=== PATIENT | female | born 1970 | race Caucasian/White ===

== ENCOUNTER 2016-09-01 23:37 | Emergency (ER) | payer OTHER ==
[2016-09-01 23:44] VITALS: BMI 26.5
--- NOTE | 2016-09-02 00:19 | PDOC ---
History of Present Illness - General History Source: Patient Exam Limitations: No Limitations - History of Present Illness Initial Comments: 09/02/16 00:34 The patient is a 46 year old female with no significant past medical history who presents to the ED for 4 days of midsternal chest pain. Patient describes her pain as a stabbing sensation that radiated to the left-side of the chest today. States she received sublingual nitro with improvement. Patient also reports she endorses SOB upon deep inspiration. Denies lightheadedness, diaphoresis, palpitations, jaw pain, shoulder pain, arm pain, nausea, or vomiting. The patient denies fever, chills, cough, abdominal pain, and diarrhea. Allergies: acetaminophen, dextromethorphan HBr, doxylamine succinate, pseudoephedrine HCl Social History: Current smoker. No alcohol or drug use reported. Family History: Mom and grandmother had a DE Past Surgical History: robotic assisted laparoscopic hysterectomy (03/2015) PCP: Dr. Ehsan Kan <Flavia Chakraborty - Last Filed: 09/02/16 05:10> - General History Source: Patient <Srinath Cavazos - Last Filed: 09/02/16 05:44> - General Chief Complaint: Chest Pain Stated Complaint: CHEST PAINS Time Seen by Provider: 09/02/16 00:19 Past History <Flavia Chakraborty - Last Filed: 09/02/16 05:10> - Past Medical History Anemia: No Asthma: No Cancer: No Cardiac Disorders: No CVA: No COPD: No CHF: No Dementia: No Diabetes: No GI Disorders: No Disorders: No HTN: No Hypercholesterolemia: No Liver Disease: No Seizures: No Thyroid Disease: No - Surgical History Abdominal Surgery: Yes (LORENZA SCOTT) - Psycho/Social/Smoking Cessation Hx Anxiety: No Suicidal Ideation: No Smoking History: Never smoked Have you smoked in the past 12 months: No Number of Cigarettes Smoked Daily: 8 Information on smoking cessation initiated: No 'Breaking Loose' booklet given: 08/29/15 Hx Alcohol Use: No Drug/Substance Use Hx: No Substance Use Type: None <Srinath Cavazos - Last Filed: 09/02/16 05:44> - Past Medical History Allergies/Adverse Reactions: Allergies Allergy/AdvReac Type Severity Reaction Status Date / Time acetaminophen [From NyQuil] Allergy Verified 09/02/16 00:12 dextromethorphan HBr Allergy Verified 09/02/16 00:12 [From NyQuil] doxylamine succinate Allergy Verified 09/02/16 00:12 [From NyQuil] pseudoephedrine HCl Allergy Verified 09/02/16 00:12 [From NyQuil] Home Medications: Ambulatory Orders Ondansetron [Zofran *Odt*] 4 mg SL TID #30 od.tablet 09/02/16 Review of Systems - Review of Systems Able to Perform ROS?: Yes Comments:: 09/02/16 00:34 CONSTITUTIONAL: Absent: fever, no chills, no fatigue EYES: Absent: visual changes ENT: Absent: ear pain, no sore throat CARDIOVASCULAR: +chest pain Absent: no palpitations RESPIRATORY: +endorses SOB upon deep inspiration Absent: cough GI: Absent: abdominal pain, no nausea, no vomiting, no constipation, no diarrhea GENITOURINARY: Absent: dysuria, no frequency, no hematuria MUSCULOSKELETAL: Absent: back pain, no arthralgia, no myalgia SKIN: Absent: rash NEURO: Absent: headache <Flavia Chakraborty - Last Filed: 09/02/16 05:10> *Physical Exam - Vital Signs Last Vital Signs Temp Pulse Resp BP Pulse Ox 98.5 F 98 H 14 122/84 98 09/01/16 23:42 09/01/16 23:44 09/01/16 23:42 09/01/16 23:42 09/01/16 23:44 - Physical Exam Comments: 09/02/16 00:34 GENERAL: Well-appearing, well-nourished. No apparent distress. HEENT: Normocephalic, atraumatic. PERRL, EOM intact. CARDIOVASCULAR: Regular rate and rhythm. No murmurs, rubs, or gallops. Distal pulses are 2+ and symmetric. PULMONARY: No evidence of respiratory distress. Right lower posterior lobe inspiratory wheezing. No rales or rhonchi. No conversational dyspnea. No retractions. ABDOMEN: Soft, non-distended, non-tender. EXTREMITIES: Normal ROM in all four extremities. No gross deformities. SKIN: Warm, dry. No rash NEUROLOGICAL: No focal neurological deficits. <Flavia Chakraborty - Last Filed: 09/02/16 05:10> - Vital Signs Last Vital Signs Temp Pulse Resp BP Pulse Ox 98.5 F 98 H 14 122/84 98 09/01/16 23:42 09/01/16 23:44 09/01/16 23:42 09/01/16 23:42 09/01/16 23:44 <Srinath Cavazos - Last Filed: 09/02/16 05:44> Heart Score/ECG Review - ECG Impressions Comment:: 09/02/16 00:34 NSR @82bpm Normal ECG 09/02/16 05:11 NSR @71bpm Normal ECG <Falvia Chakraborty - Last Filed: 09/02/16 05:10> ED Treatment Course - LABORATORY CBC & Chemistry Diagram: 09/02/16 00:30 09/02/16 00:30 - Medications Given in the ED: ED Medications Discontinued Medications Generic Name Dose Route Start Last Admin Trade Name Freq PRN Reason Stop Dose Admin Aspirin 324 mg 09/02/16 00:20 09/02/16 00:28 Asa - PO 09/02/16 00:21 324 mg ONCE ONE Administration <Flavia Chakraborty - Last Filed: 09/02/16 05:10> - LABORATORY CBC & Chemistry Diagram: 09/02/16 00:30 09/02/16 00:30 <Srinath Cavazos - Last Filed: 09/02/16 05:44> Medical Decision Making - Medical Decision Making 09/02/16 00:21 Dr. Cavazos: The scribe's documentation has been prepared under my direction and personally reviewed by me in its entirery. I confirm that the note above accurately reflects all work, treatment, procedures, and medical decision making performed by me. 09/02/16 05:34 Cardiac enzymes x 2 are negative. Pt is chest pain. Pt will be discharged. <Srinath Cavazos - Last Filed: 09/02/16 05:44> *DC/Admit/Observation/Transfer - Attestations Scribe Attestion: 09/02/16 00:34 Documentation prepared by Flavia Chakraborty, acting as medical record retrieval specialist for Srinath Cavazos MD/DO. <Flavia Chakraborty - Last Filed: 09/02/16 05:10> - Discharge Dispostion Admit: No <Srinath Cavazos - Last Filed: 09/02/16 05:44> Diagnosis at time of Disposition: Chest pain, Bronchitis - Discharge Dispostion Disposition: HOME Condition at time of disposition: Stable - Prescriptions Prescriptions: Ondansetron [Zofran *Odt*] 4 mg SL TID #30 od.tablet - Referrals Referrals: Alessio Collins MD [Staff Physician] - Donald Henning MD [Staff Physician] - - Patient Instructions Printed Discharge Instructions: DI for Chest Pain, DI for Acute Bronchitis - Post Discharge Activity Work/School Note: Back to Work
[2016-09-02] MEDS ORDERED: ALBUTEROL SO4 2.5/IPRATROPIUM 0.5 INH SOL 3 ML VIAL.NEB. NEB STA (00:20)
[2016-09-02] MEDS ORDERED: ASPIRIN 81 MG CHEWABLE TABLETS PO ONE (00:20)
[2016-09-02] MEDS ORDERED: ASPIRIN 325 MG TABLET ONE (00:30)
[2016-09-02] MEDS ORDERED: ALBUTEROL SO4 2.5/IPRATROPIUM 0.5 INH SOL 3 ML VIAL.NEB. NEB ONE (00:30)
[2016-09-02 00:38] LABS: BASOPHIL 0.8 % (0-2.0); EOSINOPHIL 2.2 % (0-4.5); MCH 27.8 pg (25.7-33.7); MCHC 33.1 g/dl (32.0-36.0); MEAN CELL VOLUME 83.9 fl (80-96); MEAN PLT VOLUME 8.6 fl (7.5-11.1); NEUTROPHILS 52.4 % (42.8-82.8); PLATELET COUNT 231 K/MM3 (134-434); RDW 12.9 % (11.6-15.6); WHITE BLOOD COUNT 9.5 K/mm3 (4.0-10.0)
[2016-09-02 00:54] LABS: INR 1.01 (0.82-1.09); PROTHROMBIN TIME (PATIENT) 11.1 SEC (9.98-11.88)
[2016-09-02 01:04] LABS: ALBUMIN 3.8 g/dl (3.4-5.0); ANION GAP 8 (8-16); BILIRUBIN,TOTAL 0.3 mg/dL (0.2-1.0); CALCIUM 8.6 mg/dL (8.5-10.1); CO2 28 mmol/L (21-32); CREATININE 0.6 mg/dL (0.55-1.02); GLUCOSE,RANDOM 114 mg/dL (74-106); SGOT/AST 25 U/L (15-37); SGPT/ALT 37 U/L (12-78); TOT PROT 7.3 g/dl (6.4-8.2)
[2016-09-02 01:07] LABS: ALK PHOS 92 U/L (45-117); TROPONIN I < 0.02 ng/ml (0.00-0.05)
[2016-09-02] MEDS ORDERED: NITROGLYCERIN 2% OINTMENT - 1GM PACKET TD ONE ×2 (01:19→01:23)
[2016-09-02 05:28] LABS: TROPONIN I < 0.02 ng/ml (0.00-0.05)
[2016-09-02] MEDS ORDERED: AZITHROMYCIN 250 MG TABLET (FP) PO STA (05:39)
[2016-09-02 05:46] VITALS: BP 120/80; PULSE 78; TEMP 98.2
[2016-09-02] MEDS ORDERED: AZITHROMYCIN 250 MG TABLET (FP) ONE (05:47)
--- NOTE | 2016-09-02 11:48 | EKG ---
Test Reason : Blood Pressure : / mmHG Vent. Rate : 082 BPM Atrial Rate : 082 BPM P-R Int : 178 ms QRS Dur : 082 ms QT Int : 368 ms P-R-T Axes : 062 038 037 degrees QTc Int : 429 ms NORMAL SINUS RHYTHM NORMAL ECG WHEN COMPARED WITH ECG OF 25-MAR-2015 16:09, QT HAS LENGTHENED Confirmed by CESAR PATINO MD ([id number]) on 09/02/2016 11:47:35 AM Referred By: Confirmed By:CESAR PATINO MD
--- NOTE | 2016-09-03 13:13 | EKG ---
Test Reason : Blood Pressure : / mmHG Vent. Rate : 071 BPM Atrial Rate : 071 BPM P-R Int : 200 ms QRS Dur : 082 ms QT Int : 398 ms P-R-T Axes : 054 031 037 degrees QTc Int : 432 ms NORMAL SINUS RHYTHM NORMAL ECG WHEN COMPARED WITH ECG OF 01-SEP-2016 23:48, NO SIGNIFICANT CHANGE WAS FOUND Confirmed by COURTNEY DAVID MD ([id number]) on 09/03/2016 1:12:44 PM Referred By: MAK Confirmed By:COURTNEY DAVID MD
== END 2016-09-02 05:47 | disposition home or self-care (01) ==
LOC: JER 23:37
PROC: 3E0F7GC Introduction of Other Therapeutic Substance into Respiratory Tract, Via Natural or Artificial Opening (ICD-10-PCS; principal; 2016-09-01)
DX: J40 Bronchitis, not specified as acute or chronic (principal)
CPT/HCPCS: 36415; 71020-TC; 80053; 82550; 84484; 84703; 85025; 85610; 93005; 93010; 99284-25

== ENCOUNTER 2017-07-12 15:00 | Emergency (ER) | payer OTHER ==
[2017-07-12 16:03] VITALS: BP 125/81; PULSE 72; TEMP 99.1; BMI 25.7
[2017-07-12] MEDS ORDERED: METOCLOPRAMIDE HCL INJECTION 10 MG/2 ML VIAL IVPUSH ONE (16:37)
[2017-07-12] MEDS ORDERED: SODIUM CHLORIDE 1,000 ML IV ONE (16:37)
--- NOTE | 2017-07-12 16:51 | PDOC ---
History of Present Illness - General History Source: Patient Exam Limitations: No Limitations - History of Present Illness Initial Comments: 07/12/17 18:55 The patient is a 47 year old female with past medical history of hysterectomy who presents to the ED with complaints of headache for 1 week. The patient states that last Wednesday she was having intercourse with her significant other and when she orgasmed, she developed a headache which has been constant since. She reports an 8/10 squeezing/burning pain in her left temporal and occipital head. She reports that on Wednesday and the pain became better but did not disappear completely. Wednesday the pain got worse again and today the pain was at its worst when she went for a jog. It has been unrelieved by Tylenol or Advil. Last doses were at 8 am and 12 in the afternoon today, two pills of each. She states the pain is worsened by yelling, but is not affected by light. She denies any associated visual changes, flashes of light, numbness/tingling, or any focal neurological deficits but reports associated lightheadedness. She denies any frequent headaches and denies any trauma. Denies any neck or back pain, chest pain, or SOB. She denies any recent fevers or chills. Denies any nausea, vomiting, diarrhea. <Elena Martinez - Last Filed: 07/12/17 18:55> - General History Source: Patient Exam Limitations: No Limitations <Luis Zavala - Last Filed: 07/12/17 19:16> - General Chief Complaint: Headache Stated Complaint: HEADACHE Time Seen by Provider: 07/12/17 15:49 Past History <Elena Martinez - Last Filed: 07/12/17 18:55> - Past Medical History Anemia: No Asthma: No Cancer: No Cardiac Disorders: No CVA: No COPD: No CHF: No Dementia: No Diabetes: No GI Disorders: No Disorders: No HTN: No Hypercholesterolemia: No Liver Disease: No Seizures: No Thyroid Disease: No - Surgical History Abdominal Surgery: Yes (TUMMY TUCK) - Suicide/Smoking/Psychosocial Hx Smoking History: Never smoked Have you smoked in the past 12 months: No Number of Cigarettes Smoked Daily: 8 Information on smoking cessation initiated: Yes 'Breaking Loose' booklet given: 08/29/15 Hx Alcohol Use: Yes (OCCASIONAL) Drug/Substance Use Hx: No Substance Use Type: None <Luis Zavala - Last Filed: 07/12/17 19:16> - Past Medical History Allergies/Adverse Reactions: Allergies Allergy/AdvReac Type Severity Reaction Status Date / Time acetaminophen [From NyQuil] Allergy Verified 07/12/17 15:47 dextromethorphan Hbr Allergy Verified 07/12/17 15:47 [From NyQuil] doxylamine succinate Allergy Verified 07/12/17 15:47 [From NyQuil] pseudoephedrine HCl Allergy Verified 07/12/17 15:47 [From NyQuil] Home Medications: Ambulatory Orders Acetaminophen 1,000 mg PO ONCE 07/12/17 Ibuprofen [Motrin Ib] 400 mg PO ONCE 07/12/17 Review of Systems - Review of Systems Able to Perform ROS?: Yes Comments:: 07/12/17 18:56 CONSTITUTIONAL: No reported: Fever, Chills, Diaphoresis, Generalized Weakness, Malaise, Loss of Appetite HEENT: No reported: Rhinorrhea, Nasal Congestion, Throat Pain, Throat Swelling, Difficulty Swallowing, Mouth Swelling, Ear Pain, Eye Pain, Visual Changes CARDIOVASCULAR: No reported: Chest Pain, Syncope, Palpitations, Irregular Heart Rate, Lightheadedness, Peripheral Edema RESPIRATORY: No reported: Cough, Shortness of Breath, SOB with Exertion, Orthopnea, Wheezing , Stridor, Hemoptysis GASTROINTESTINAL: No reported: Abdominal pain, Abdominal Distension, Nausea, Vomiting, Diarrhea, Constipation, Melena, Hematochezia GENITOURINARY: No reported: Dysuria, Frequency, Urgency, Hesitancy, Flank Pain, Genital Pain MUSCULOSKELETAL: No reported: Myalgia, Arthralgia, Joint Swelling, Back pain, Neck Pain SKIN: No reported: Rash, Itching, Pallor HEMEATOLOGIC/IMMUNOLOGIC: No reported: Easy Bleeding, Easy Bruising, Lymphadenopathy, Frequent infections ENDOCRINE: No reported: Unexplained Weight Gain, Unexplained Weight Loss, Heat Intolerance , Cold Intolerance NEUROLOGIC: (+) Headache, dizziness No reported: Focal Weakness, Paresthesias, Vertigo, Unsteady Gait, Seizure, Mental Status Changes, Incontinence PSYCHIATRIC: No reported: Anxiety, Depression All Other Systems: Reviewed and Negative <Elena Martinez - Last Filed: 07/12/17 18:55> *Physical Exam - Vital Signs Last Vital Signs Temp Pulse Resp BP Pulse Ox 99.1 F 72 16 125/81 100 07/12/17 15:33 07/12/17 15:33 07/12/17 15:33 07/12/17 15:33 07/12/17 15:33 - Physical Exam Comments: 07/12/17 18:56 GENERAL: The patient is awake, alert, and fully oriented, Nontoxic - in no acute distress. HEAD: Normocephalic, atraumatic, mild tenderness on palpation of L evangelical EYES: extraocular movements intact, PERRL, sclera anicteric, conjunctiva clear. ENT: Normal voice, Moist mucous membranes. NECK: Normal range of motion, supple LUNGS: Breath sounds equal, clear to auscultation bilaterally. No wheezes, no rhonchi, no rales. HEART: Regular rate and rhythm, without murmur, rub or gallop. ABDOMEN: Soft, nontender, normoactive bowel sounds. No guarding, no rebound.No CVA tenderness EXTREMITIES: Normal range of motion, no edema. No clubbing or cyanosis. No cords , erythema, or tenderness. PSYCH: Normal mood, normal affect. SKIN: Warm, Dry, normal turgor, NEURO: Mental status: The patient is oriented x3. Cranial nerves: Cranial nerves II through XII are intact Motor: The upper extremities are 5 over 5 in all muscle groups. The lower extremities are 5 over 5 in all muscle groups. No pronator drift. Sensation: Sensation is intact to light touch throughout. Neg romberg Cerebellar: Rwsnyd-zabgvm-hrup is normal in both upper extremities. Heel-knee- loredo is normal in both lower extremities. Reflexes: 2+ and symmetric in the upper and lower extremities. Gait: Normal. <Jaquelinechristus st. vincent regional medical centerElena - Last Filed: 07/12/17 18:55> - Vital Signs Last Vital Signs Temp Pulse Resp BP Pulse Ox 99.1 F 72 16 125/81 100 07/12/17 15:33 07/12/17 15:33 07/12/17 15:33 07/12/17 15:33 07/12/17 15:33 <Luis Zavala - Last Filed: 07/12/17 19:16> Moderate Sedation - Procedure Monitoring Vital Signs: Vital Signs Temp Pulse Resp BP Pulse Ox 99.1 F 72 16 125/81 100 07/12/17 15:33 07/12/17 15:33 07/12/17 15:33 07/12/17 15:33 07/12/17 15:33 <JuanElena - Last Filed: 07/12/17 18:55> - Procedure Monitoring Vital Signs: Vital Signs Temp Pulse Resp BP Pulse Ox 99.1 F 72 16 125/81 100 07/12/17 15:33 07/12/17 15:33 07/12/17 15:33 07/12/17 15:33 07/12/17 15:33 <Luis Zavala - Last Filed: 07/12/17 19:16> ED Treatment Course - LABORATORY CBC & Chemistry Diagram: 07/12/17 17:15 07/12/17 17:15 - ADDITIONAL ORDERS Additional order review: Laboratory Results 07/12/17 07/12/17 07/12/17 17:15 17:15 17:15 PT with INR 11.5 INR 1.03 Sodium 135 L Potassium 4.0 Chloride 101 Carbon Dioxide 29 H Anion Gap 5 L BUN 11 Creatinine < 0.8 Creat Clearance w eGFR > 60 Random Glucose 91 Calcium 9.4 Total Bilirubin 0.5 AST 21 ALT 21 Alkaline Phosphatase 75 Total Protein 7.9 Albumin 4.7 Urine Color Yellow Urine Appearance Clear Urine pH 7.0 Ur Specific [place] 1.015 Urine Protein Negative Urine Glucose (UA) Negative Urine Ketones Negative Urine Blood 1+ H Urine Nitrite Negative Urine Bilirubin Negative Urine Urobilinogen 0.2 Ur Leukocyte Esterase Negative Urine HCG, Qual Negative 07/12/17 17:15 RBC 4.77 MCV 83.6 MCHC 33.8 RDW 12.9 MPV 8.7 Neutrophils % 63.2 Lymphocytes % 28.4 Monocytes % 5.9 Eosinophils % 1.5 Basophils % 1.0 - RADIOLOGY Radiograph Interpretation: 07/12/17 18:[address] as reviewed by Dr. Gale, reports no acute pathology. - Medications Given in the ED: ED Medications Discontinued Medications Generic Name Dose Route Start Last Admin Trade Name Freq PRN Reason Stop Dose Admin Sodium Chloride 1,000 mls @ 1,000 mls/hr 07/12/17 16:37 07/12/17 17:22 Normal Saline - IV 07/12/17 17:36 1,000 mls/hr .Q1H ONE Administration Metoclopramide HCl 10 mg 07/12/17 16:37 07/12/17 17:23 Reglan Injection - IVPUSH 07/12/17 16:38 10 mg ONCE ONE Administration <Elena Martinez - Last Filed: 07/12/17 18:55> - LABORATORY CBC & Chemistry Diagram: 07/12/17 17:15 07/12/17 17:15 - RADIOLOGY Radiology Studies Ordered: Category Date Time Status HEAD CT WITHOUT CONTRAST [CT] Stat CT Scan 07/12/17 16:37 Ordered <Luis Zavala - Last Filed: 07/12/17 19:16> Medical Decision Making - Medical Decision Making 07/12/17 16:47 47y F presents with complaint of headache, pt notes taht headaaches tarted when she had an orgasm last wednesday is pounding, more on the R temporal region without associated photo/phonophobia (Although yelling makes it worse), improved on wed but returned mildly on wednesday, worsened today when she went for a jog. no improvement with motrin/tylenol pts exam unremarkable inluding a normal neuro exam ddx inludes post coital headache, tension heaadche vs SAH will ck CT head, labs, reglan/fluids will reassesss A portion of this note was documented by scribe services under my direction. I have reviewed the details of the note, within reason, and agree with the documentation with the following case summary and management plan written by me 07/12/17 18:38 pts labs reviewed, unremabkle pts ct neg pt feeling substntially better, currently approx 2-3/10 from 10/01 on presentation will give pt small dose of toradol suspect tension vs migraine headache anticipate dc after fluid hydration 07/12/17 19:16 Patient agent feeling significantly improved will discharge patient with PMD follow-up I discussed the physical exam findings, ancillary test results and final diagnoses with the patient. I answered all of the patient's questions. The patient was satisfied with the care received and felt comfortable with the discharge plan and treatment plan. The patient will call their primary care physician within 24 hours to arrange follow-up and will return to the Emergency Department with any new, persistent or worsening symptoms. <Luis Zavala - Last Filed: 07/12/17 19:16> *DC/Admit/Observation/Transfer - Attestations Scribe Attestion: 07/12/17 18:26 Documentation prepared by Elena Martinez, acting as certified medical asst for Luis Zavala MD. <Elena Martinez - Last Filed: 07/12/17 18:55> - Discharge Dispostion Decision to Admit order: No <Luis Zavala - Last Filed: 07/12/17 19:16> Diagnosis at time of Disposition: Headache Qualifiers: Headache type: tension-type Headache chronicity pattern: acute headache Intractability: not intractable Qualified Code(s): G44.209 - Tension-type headache, unspecified, not intractable - Discharge Dispostion Disposition: HOME Condition at time of disposition: Improved - Referrals Referrals: [facility] [place] [Provider Group] - Patient Instructions Printed Discharge Instructions: DI for Hormonal and Tension Headaches Additional Instructions: Return to the emergency department immediately with ANY new, persistent or worsening symptoms including worsening headache, vision changes, numbness/ tingling/weakness, persistent nausea and vomiting or any other concerns. Make sure you are getting adaqute sleep and hydration. You MUST call and follow up with your doctor tomorrow for further evaluation of your symptoms. Your emergency department visit is not complete without a followup with your doctor for reevaluation. Results were discussed with you. Please make sure your doctor reviews the results of your emergency evaluation. If you had any xrays during your visit, it was read preliminarily by myself, a Radiologist will review it and if there are any additional findings we will call you. Print Language: [id number]
[2017-07-12 17:26] LABS: URINE APPEARANCE Clear; URINE BILIRUBIN Negative (NEGATIVE); URINE GLUCOSE (UA) Negative (NEGATIVE); URINE KETONE Negative (NEGATIVE); URINE LEUK ESTERASE Negative (NEGATIVE); URINE NITRITE Negative (NEGATIVE); URINE PROTEIN Negative (NEGATIVE); URINE UROBILINOGEN 0.2 (0.2-1.0)
[2017-07-12 17:27] LABS: URINE BLOOD 1+ (NEGATIVE); URINE COLOR YELLOW
[2017-07-12 17:31] LABS: EOS % 1.5 % (0-4.5); HEMATOCRIT 39.9 % (32.4-45.2); HEMOGLOBIN 13.5 GM/dl (10.7-15.3); LYMPH % 28.4 % (8-40); MCH 28.3 pg (25.7-33.7); MCHC 33.8 g/dl (32.0-36.0); MEAN CELL VOLUME 83.6 fl (80-96); MEAN PLT VOLUME 8.7 fl (7.5-11.1); MONO % 5.9 % (3.8-10.2); NEUT % 63.2 % (42.8-82.8); PLATELET COUNT 275 K/MM3 (134-434); RBC 4.77 M/mm3 (3.60-5.2); RDW 12.9 % (11.6-15.6); WHITE BLOOD COUNT 10.2 K/mm3 (4.0-10.8)
[2017-07-12 17:32] LABS: HCG,QUALITATIVE URINE Negative
[2017-07-12 17:40] LABS: INR 1.03 (0.82-1.09); PROTHROMBIN TIME (PATIENT) 11.5 SEC (10.2-13.0)
[2017-07-12 17:43] LABS: ALBUMIN 4.7 g/dl (3.5-5.0); ALK PHOS 75 U/L (32-92); ANION GAP 5 (8-16); BILIRUBIN,TOTAL 0.5 mg/dl (0.2-1.0); BLOOD UREA NITROGEN 11 mg/dl (7-18); CALCIUM 9.4 mg/dl (8.4-10.2); CHLORIDE 101 mmol/L (98-107); CO2 29 mmol/L (22-28); GLUCOSE,RANDOM 91 mg/dl (74-106); SGOT/AST 21 U/L (10-42); SGPT/ALT 21 U/L (10-40); SODIUM 135 mmol/L (136-145); TOT PROT 7.9 g/dl (6.4-8.3)
[2017-07-12 18:03] LABS: CREATININE < 0.8 mg/dl (0.6-1.3)
[2017-07-12] MEDS ORDERED: KETOROLAC TROMETHAMINE 30 MG/1 ML VIAL IVPUSH ONE (18:37)
[2017-07-12] MEDS ORDERED: KETOROLAC TROMETHAMINE 15 MG/ML VIAL ONE (18:53)
[2017-07-12 21:49] LABS: EPI CELLS MODERATE /HPF; URINE BACTERIA FEW /hpf (NEGATIVE); URINE WBC 0-2 (0-5)
== END 2017-07-12 19:23 | disposition home or self-care (01) ==
LOC: FER 15:00
PROC: 3E0333Z Introduction of Anti-inflammatory into Peripheral Vein, Percutaneous Approach (ICD-10-PCS; principal; 2017-07-12)
PROC: 3E033GC Introduction of Other Therapeutic Substance into Peripheral Vein, Percutaneous Approach (ICD-10-PCS; 2017-07-12)
PROC: 3E0337Z Introduction of Electrolytic and Water Balance Substance into Peripheral Vein, Percutaneous Approach (ICD-10-PCS; 2017-07-12)
DX: G44.209 Tension-type headache, unspecified, not intractable (principal)
CPT/HCPCS: 36415; 70450-TC; 80053; 81003; 81015; 84703; 85025; 85610; 99283-25; J7030

== ENCOUNTER 2018-06-20 18:10 | Emergency (ER) | payer OTHER ==
[2018-06-20 18:21] VITALS: BP 113/75; PULSE 85; TEMP 98.5; BMI 23.9
[2018-06-20] MEDS ORDERED: GABAPENTIN 100 MG CAPSULE (FP) PO ONE (18:50)
[2018-06-20] MEDS ORDERED: GABAPENTIN 300 MG CAPSULE (FP) PO ONE (18:58)
[2018-06-20] MEDS ORDERED: GABAPENTIN 300 MG CAPSULE (FP) ONE (19:04)
--- NOTE | 2018-06-20 19:19 | PDOC ---
Documentation entered by Germaine Waller SCRIBE, acting as scribe for Bob Chowdary MD. Bob Chowdary MD: This documentation has been prepared by the Sridhar rodriguez Xhesika, SCRIBE, under my direction and personally reviewed by me in its entirety. I confirm that the documentation accurately reflects all work, treatment, procedures, and medical decision making performed by me. History of Present Illness - General Chief Complaint: Pain Stated Complaint: SCALP PAIN Time Seen by Provider: 06/20/18 18:28 History Source: Patient Exam Limitations: No Limitations - History of Present Illness Initial Comments: 06/20/18 18:59 The patient is a 48 year old female, with no significant past medical history of who presents to the emergency department with right sided scalp pain since yesterday. The patient states her pain is constant pressure, described as shooting electric pain that radiates to the front of her face which worsened this morning. The patient states that when she touches her scalp it feels like a bruise. The patient states she experienced the same pain 8 months ago, however , it immediately self resolved unlike this time. The patient denies chest pain, shortness of breath, headache or dizziness. The patient denies fever, chills, nausea, vomit, diarrhea or constipation. The patient denies dysuria, frequency, urgency or hematuria. Allergies: dextromethorphan Hb, doxylamine succinate, pseudoephedrine HCl, and mint Past [facility] history:[facility] Social history: occasional drinker Past History - Past Medical History Allergies/Adverse Reactions: Allergies Allergy/AdvReac Type Severity Reaction Status Date / Time dextromethorphan Hbr Allergy Verified 07/12/17 15:47 [From NyQuil] doxylamine succinate Allergy Verified 07/12/17 15:47 [From NyQuil] mint Allergy Verified 06/20/18 18:13 pseudoephedrine HCl Allergy Verified 07/12/17 15:47 [From NyQuil] Home Medications: Ambulatory Orders Gabapentin 100 mg PO BID PRN #20 capsule 06/20/18 Anemia: No Asthma: No Cancer: No Cardiac Disorders: No CVA: No COPD: No CHF: No Dementia: No Diabetes: No GI Disorders: No Disorders: No HTN: No Hypercholesterolemia: No Liver Disease: No Seizures: No Thyroid Disease: No - Surgical History Abdominal Surgery: Yes ([facility]) - Suicide/Smoking/Psychosocial Hx Smoking History: Current every day smoker Have you smoked in the past 12 months: Yes Number of Cigarettes Smoked Daily: 6 Information on smoking cessation initiated: Yes 'Breaking Loose' booklet given: 08/29/15 Hx Alcohol Use: (occasional) Drug/Substance Use Hx: No Substance Use Type: None Review of Systems - Review of Systems Able to Perform ROS?: Yes Comments:: 06/20/18 19:00 GENERAL/CONSTITUTIONAL: No fever or chills. No weakness. HEAD, EYES, EARS, NOSE AND THROAT: No change in vision. No ear pain or discharge. No sore throat. CARDIOVASCULAR: No chest pain or shortness of breath. RESPIRATORY: No cough, wheezing, or hemoptysis. GASTROINTESTINAL: No nausea, vomiting, diarrhea or constipation. GENITOURINARY: No dysuria, frequency, or change in urination. MUSCULOSKELETAL: No joint or muscle swelling or pain. No neck or back pain. SKIN: No rash NEUROLOGIC: (+) scalp pain.No headache, vertigo, loss of consciousness, or change in strength/sensation. ENDOCRINE: No increased thirst. No abnormal weight change. HEMATOLOGIC/LYMPHATIC: No anemia, easy bleeding, or history of blood clots. ALLERGIC/IMMUNOLOGIC: No hives or skin allergy. *Physical Exam - Vital Signs Last Vital Signs Temp Pulse Resp BP Pulse Ox 98.5 F 85 18 113/75 98 06/20/18 18:10 06/20/18 18:10 06/20/18 18:10 06/20/18 18:10 06/20/18 18:10 - Physical Exam Comments: 06/20/18 19:00 GENERAL: Awake, alert, and fully oriented, in no acute distress HEAD: No signs of trauma EYES: PERRLA, EOMI, sclera anicteric, conjunctiva clear ENT: Auricles normal inspection, hearing grossly normal, nares patent, oropharynx clear without exudates. Moist mucosa NECK: Normal ROM, supple, no lymphadenopathy, JVD, or masses LUNGS: Breath sounds equal, clear to auscultation bilaterally. No wheezes, and no crackles HEART: Regular rate and rhythm, normal S1 and S2, no murmurs, rubs or gallops ABDOMEN: Soft, nontender, normoactive bowel sounds. No guarding, no rebound. No masses EXTREMITIES: Normal range of motion, no edema. No clubbing or cyanosis. No cords, erythema, or tenderness NEUROLOGICAL: (+) reproducible pain on palpation of R side of scalp. (+) 5/5 strength and sensation. No pronator drift. Cranial nerves II through XII grossly intact. Normal speech, normal gait Medical Decision Making - Medical Decision Making 06/20/18 18:54 A portion of this note was documented by scribe services under my direction. I have reviewed the details of the note, within reason, and agree with the documentation with the following case summary and management plan written by me. Patient treated in the ED. Nursing notes are reviewed and incorporated into the medical decision-making. Vital signs reviewed. Vital Signs Temp Pulse Resp BP Pulse Ox 98.5 F 85 18 113/75 98 06/20/18 18:10 06/20/18 18:10 06/20/18 18:10 06/20/18 18:10 06/20/18 18:10 48-year-old female with no past medical history presents with shooting right scalp pain for 8 months. Patient reports electric type pain that goes within the right-sided V1 distribution. Denies any neurological deficits. No numbness or weakness. States that the pain is shooting and without any assorted rhythm. The patient has neurologically intact. I suspect patient likely has trigeminal neuralgia. I had discussed the potential option of initiating carbamazepine. Given the potential risks for side effects, the patient has opted for something different such as gabapentin. We'll initiate 100 mg of gabapentin 3 times a day when necessary as needed. Blood the patient follow-up with a neurologist. Return precautions given. *DC/Admit/Observation/Transfer Diagnosis at time of Disposition: Trigeminal neuralgia - Discharge Dispostion Disposition: HOME Condition at time of disposition: Stable Decision to Admit order: No - Prescriptions Prescriptions: Gabapentin 100 mg PO BID PRN #20 capsule PRN Reason: Trigeminal Neuralgia - Referrals Referrals: Les Lee MD [Staff Physician] - - Patient Instructions Printed Discharge Instructions: DI for Trigeminal Neuralgia Additional Instructions: Please take 100 mg gabapentin every 12 hours as needed for symptom control. Please follow up with a neurologist. If you start to notice uncontrollable pain or any neurological deficits such as complete numbness, weakness, please return to the ER. - Post Discharge Activity
== END 2018-06-20 19:10 | disposition home or self-care (01) ==
LOC: FER 18:10
DX: G50.0 Trigeminal neuralgia (principal); F17.210 Nicotine dependence, cigarettes, uncomplicated
CPT/HCPCS: 99282-25